=== PATIENT | female | born 1975 | race African-American/Black ===

== ENCOUNTER 2022-01-23 11:29 | Emergency (ER) | payer OTHER ==
[~2022-01-23] VITALS: Ht 170.2 cm; Wt 91.0 kg
[2022-01-23] MEDS ORDERED: FAMO-135 PO (11:52)
[2022-01-23] MEDS ORDERED: ONDANSETRON HCL 4MG/2ML INJ IV STA (12:19)
[2022-01-23] MEDS ORDERED: MAGNESIUM/ALUMINUM HYDROXIDE/SIMETHICONE 30ML UDC PO STA (12:19)
[2022-01-23] MEDS ORDERED: ACETAMINOPHEN 325MG TABLET PO STA (12:19)
[2022-01-23] MEDS ORDERED: PANTOPRAZOLE SODIUM 40 MG/VIAL IV STA (12:19)
[2022-01-23] MEDS ORDERED: VISCOUS LIDOCAINE 2% 15 ML UDC PO STA (12:19)
[2022-01-23] MEDS ORDERED: SODIUM CHLORIDE 0.9% 1,000 ML IV ONE (12:30)
[2022-01-23 13:16] LABS: BASOPHILS % 0.8 % (0.0-2.0); EOSINOPHILS % 1.4 % (0.0-5.0); HEMATOCRIT. 43.3 % (36.0-48.0); HEMOGLOBIN. 14.3 g/dL (12.0-16.0); MEAN CORPUSCULAR HEMOGLOBIN 28.2 pg (28.0-32.0); MEAN CORPUSCULAR VOLUME 85.3 fL (81.0-99.0); MEAN PLATELET VOLUME 10.4 fl (7.4-10.4); MONOCYTES % 6.3 % (2.0-8.0); NEUTROPHILS % 62.5 % (40.0-76.0); PLATELET 216 x1000/uL (130-400); RED BLOOD CELL COUNT 5.08 mill/uL (4.2-5.4); RED CELL DISTRIBUTION WIDTH 14.4 % (11.6-14.6)
[2022-01-23 13:33] LABS: HCG SCREEN INDETERMINATE
[2022-01-23 13:56] LABS: CHLORIDE 110 mEq/L (98-107)
[2022-01-23 14:04] LABS: ETHANOL BLOOD < 10 mg/dL
[2022-01-23] MEDS ORDERED: ACET-2708 MT (14:41)
[2022-01-23] MEDS ORDERED: MAG355OR21 MT (14:41)
[2022-01-23] MEDS ORDERED: ONDA4TAB50 MT (14:41)
[2022-01-23 15:32] VITALS: BP 130/78
[2022-01-23 15:33] LABS: CLARITY URINE CLEAR (CLEAR); COLOR URINE YELLOW (YELLOW); KETONES URINE TRACE (NEGATIVE); LEUKOCYTE ESTERASE URINE NEGATIVE (NEGATIVE); NITRITE URINE NEGATIVE (NEGATIVE); OCCULT BLOOD URINE NEGATIVE (NEGATIVE); PH URINE 6.5 (4.5-8.0); PROTEIN URINE NEGATIVE (NEGATIVE); SPECIFIC GRAVITY URINE 1.017 (1.005-1.030); UROBILINOGEN URINE 0.2 E.U./dL (0.2-1.0)
[2022-01-23 16:11] LABS: *AMPHETAMINES SCREEN URINE NEGATIVE (NEGATIVE); *BARBITURATES SCREEN URINE NEGATIVE (NEGATIVE); *BENZODIAZEPINES SCREEN URINE NEGATIVE (NEGATIVE); *COCAINE SCREEN URINE NEGATIVE (NEGATIVE); METHADONE URINE SCREEN NEGATIVE (NEGATIVE); OPIATES URINE SCREEN NEGATIVE (NEGATIVE); PHENCYCLIDINE URINE SCREEN NEGATIVE (NEGATIVE)
[2022-01-23 16:12] LABS: CANNABINOID URINE SCREEN PRESUMTIVE POSITIVE (NEGATIVE)
== END 2022-01-23 15:33 | disposition home or self-care (01) ==
LOC: ER 11:29
DX: K29.70 Gastritis, unspecified, without bleeding (principal); R03.0 Elevated blood-pressure reading, without diagnosis of hypertension; J45.909 Unspecified asthma, uncomplicated
CPT/HCPCS: 36415; 71045; 76705; 80053; 80305; 80320; 81003; 83690; 84702; 84703; 85025; 93005; 96374; 96375; 99285; C9113; J2405; J7030; G0480

== ENCOUNTER 2022-03-06 13:36 | Emergency (ER) | payer MEDICAID, OTHER ==
[~2022-03-06] VITALS: Ht 167.6 cm; Wt 75.0 kg
[~2022-03-06 13:36] MED LIST: ACET-2708 MT; FAMO-135 PO; MAG355OR21 MT; ONDA4TAB50 MT
[2022-03-06] MEDS ORDERED: KETOROLAC 60MG/2ML VIAL IM ONE (16:00)
[2022-03-06] MEDS ORDERED: HYDROCODONE/ACETAMINOPHEN 5/325MG TABLET PO PRN (16:00)
[2022-03-06] MEDS ORDERED: ACET-2708 MT (17:02)
[2022-03-06] MEDS ORDERED: CYCL5TAB MT (17:02)
[2022-03-06 17:21] VITALS: BP 109/79
== END 2022-03-06 18:15 | disposition home or self-care (01) ==
LOC: ER 13:36
DX: M54.16 Radiculopathy, lumbar region (principal)
CPT/HCPCS: 93971; 96372; 99283; J1885

== ENCOUNTER 2022-05-15 15:41 | Emergency (ER) | payer MEDICAID ==
[~2022-05-15] VITALS: Ht 165.1 cm; Wt 86.9 kg
[~2022-05-15 15:41] MED LIST changes: +CYCL5TAB MT
[2022-05-15 17:24] LABS: CHLORIDE 107 mEq/L (98-107)
[2022-05-15 17:30] LABS: HEMATOCRIT. 42.9 % (36.0-48.0); HEMOGLOBIN. 14.1 g/dL (12.0-16.0); MEAN CORPUSCULAR HEMOGLOBIN 28.4 pg (28.0-32.0); MEAN CORPUSCULAR VOLUME 86.1 fL (81.0-99.0); MEAN PLATELET VOLUME 10.6 fl (7.4-10.4); MONOCYTES % 5.5 % (2.0-8.0); NEUTROPHILS % 64.5 % (40.0-76.0); PLATELET 197 x1000/uL (130-400); RED BLOOD CELL COUNT 4.98 mill/uL (4.2-5.4); RED CELL DISTRIBUTION WIDTH 14.1 % (11.6-14.6)
[2022-05-15 17:50] LABS: HCG SCREEN NEGATIVE
[2022-05-16] MEDS ORDERED: SODIUM CHLORIDE 0.9% 1,000 ML IV NR (00:30)
[2022-05-16] MEDS ORDERED: DIPHENHYDRAMINE 50MG/ML VIAL IV NR (00:30)
[2022-05-16] MEDS ORDERED: PROCHLORPERAZINE 10MG/2ML VIAL IV PRN (00:30)
[2022-05-16] MEDS ORDERED: IBUP-2029 MT (02:48)
[2022-05-16] MEDS ORDERED: MECL-159 MT (02:48)
[2022-05-16] MEDS ORDERED: IOHEXOL-350 100 ML BOTTLE ONE (04:33)
[2022-05-16 06:15] VITALS: BP 125/90
== END 2022-05-16 06:51 | disposition home or self-care (01) ==
LOC: ER 15:41
DX: R42 Dizziness and giddiness (principal); R20.0 Anesthesia of skin; R51.9 Headache, unspecified; R07.89 Other chest pain; R11.0 Nausea; R20.2 Paresthesia of skin
CPT/HCPCS: 36415; 70450; 70496; 70498; 71045; 80053; 81025; 82962; 84484; 84703; 85025; 93005; 96361; 96374; 96375; 99285; J0780; J1200; Q9967; Z7610